=== PATIENT | female | born 1955 | race Caucasian/White ===

== ENCOUNTER 2017-05-21 05:07 | Inpatient (IN) | payer MEDICARE, OTHER ==
[~2017-05-21] VITALS: Ht 165.1 cm; Wt 102.0 kg
[~2017-05-21 05:07] MED LIST: AMLO-145 PO; GEMF600T60 PO; POTA10TA97 PO; VALS160T20 PO; [UNRECOGNIZED DRUG - OTHER] PO
[2017-05-21 06:37] LABS: BASOPHIL # 0.1 10^3/ul (0.0-0.1); BASOPHILS % 0.8 % (0.0-2.0); EOSINOPHILS # 0.2 10^3/ul (0.0-0.5); EOSINOPHILS % 3.2 % (0.0-7.0); HEMATOCRIT 39.6 % (37.0-47.0); HEMOGLOBIN 12.2 g/dl (12.0-16.0); LYMPHOCYTES # 3.2 10^3/ul (0.8-2.9); LYMPHOCYTES % 41.7 % (15.0-51.0); MEAN CORPUSCULAR HEMOGLOBIN 26.9 pg (29.0-33.0); MEAN CORPUSCULAR HGB CONC 30.8 g/dl (32.0-37.0); MEAN CORPUSCULAR VOLUME 87.4 fl (82.0-101.0); MEAN PLATELET VOLUME 10.5 fl (7.4-10.4); MONOCYTE # 0.9 10^3/ul (0.3-0.9); MONOCYTES % 11.2 % (0.0-11.0); PLATELET COUNT 287 10^3/UL (140-415); RED BLOOD COUNT 4.53 10^6/ul (4.20-5.40); RED CELL DISTRIBUTION WIDTH 14.1 % (11.5-14.5); WHITE BLOOD COUNT 7.6 10^3/ul (4.8-10.8)
[2017-05-21] MEDS ORDERED: ASPIRIN 325 MG TAB PO STA (06:49)
[2017-05-21 07:04] LABS: ANION GAP 12 (8-16); BLOOD UREA NITROGEN 18 mg/dl (7-20); CALCIUM 9.4 mg/dl (8.4-10.2); CARBON DIOXIDE 27 mmol/L (21-31); CHLORIDE 106 mmol/L (97-110); CREATININE 1.18 mg/dl (0.44-1.00); GLUCOSE 92 mg/dl (70-220); POTASSIUM 4.4 mmol/L (3.5-5.1); SODIUM 141 mmol/L (135-144)
--- NOTE | 2017-05-21 07:05 | ERA ---
ER Documentation Chief Complaint Date/Time DATE: 05/21/17 TIME: 06:54 Chief Complaint CP x5 hours ago. HPI 61-year-old female with a history of hypertension, hyperlipidemia, asthma, uterine prolapse and a pulmonary embolism in 2008 treated with Coumadin for 1 year ambulatory to the emergency department with her daughter complaining of acute onset of sharp, left sided chest pain which radiates to her back accompanied by mild shortness of breath and nausea but vomiting or diaphoresis. Pain is pleuritic and exacerbated by breathing. No relieving factors. Denies cough or wheezing. No leg pain or swelling. No skin rash. Several month history of mild, intermittent, generalized, nonradiating, crampy abdominal pain but not currently. No hematemesis, hematochezia or melanotic stools. No dysuria, polyuria, hematuria or flank pain. No URI symptoms or cough. No fevers or chills. Patient does have a long history of intermittent episodes of chest pain and had a negative nuclear medicine study in 2011. ROS All systems reviewed and are negative except as per history of present illness. Medications Home Meds Reported Medications Potassium Chloride (Klor-Con) 10 Meq Tablet.sa, 8 MEQ PO DAILY 12/25/11 [Hydrochlorotiazide] No Conflict Check, 25 MG PO DAILY 12/25/11 Amlodipine Besylate* (Amlodipine Besylate*) 5 Mg Tablet, 5 MG PO DAILY 12/25/11 Gemfibrozil* (Gemfibrozil*) 600 Mg Tablet, 600 MG PO DAILY 12/25/11 Valsartan* (Diovan*) 160 Mg Tablet, 160 MG PO DAILY 12/25/11 Allergies Allergies: Coded Allergies: No Known Allergy (Unverified , 05/21/17) NKA/NINOSKA/NUCLEAR MEDICINE (PER PT) PMhx/Soc Reviewed in chart. As per HPI. Medical and Surgical Hx: pt denies Medical Hx, pt denies Surgical Hx History of Surgery: Yes (uterine detachment surgery) Anesthesia Reaction: No Hx Neurological Disorder: No Hx Respiratory Disorders: Yes (asthma) Hx Cardiac Disorders: Yes (htn, ) Hx Psychiatric Problems: No Hx Miscellaneous Medical Probl: No Hx Alcohol Use: No Hx Substance Use: No Hx Tobacco Use: No Smoking Status: Never smoker FmHx Both parents of MIs in their 80s and had hypertension. Physical Exam Vitals Vital Signs Date Time Temp Pulse Resp B/P Pulse Ox O2 Delivery O2 Flow Rate FiO2 05/21/17 08:25 61 18 128/59 99 Nasal Cannula 2.0 05/21/17 06:11 Nasal Cannula 2 05/21/17 06:11 76 16 123/63 99 Nasal Cannula 2.0 05/21/17 05:14 97.8 66 20 142/70 96 Physical Exam GENERAL: Alert, well-appearing, Anxious in mild distress SKIN: Warm, dry, no rash, No petechiae. No ecchymoses or bruising. HEAD: Atraumatic NECK: Supple, no tenderness, full range of motion. No lymphadenopathy. No JVD. EYES: Pupils are equal, round and reactive to light, extraocular movements are intact, Conjunctiva, not injected, sclera anicteric. ENT: Mucous membranes are moist. Pharynx is clear without erythema or exudate. CARDIOVASCULAR: Regular rate and rhythm, S1, S2, No murmurs, rubs or gallops. No edema Pulses are 4+ in all extremities. RESPIRATORY: Breath sounds are equal bilaterally. No rales, rhonchi or wheezes. CHEST WALL: Mild reproducible tenderness. No ecchymosis or bruising GASTROINTESTINAL: Bowel sounds present, nondistended. Soft, nontender, no rebound or guarding. Obese. No masses or abnormal pulsations. BACK: No spinal tenderness or paraspinal muscle spasm. No costovertebral angle tenderness. MUSCULOSKELETAL: Normal ROM, no deformity. No calf swelling or tenderness, NEUROLOGIC: Alert and oriented. CN II-XII intact. No focal neurological deficit observed. Normal speech. LYMPHATICS: No gross cervical, axillary or inguinal lymphadenopathy. No Lymphedema. PSYCHIATRIC: Cooperative. Appropriate mood and affect. Appears anxious but depressed. Result Diagram: 05/21/1745 05/21/1745 Results 24 hrs Laboratory Tests Test 05/21/17 05:45 White Blood Count 7.610^3/ul Red Blood Count 4.5310^6/ul Hemoglobin 12.2g/dl Hematocrit 39.6% Mean Corpuscular Volume 87.4fl Mean Corpuscular Hemoglobin 26.9pg Mean Corpuscular Hemoglobin Concent 30.8g/dl Red Cell Distribution Width 14.1% Platelet Count 34663^3/UL Mean Platelet Volume 10.5fl Neutrophils % 43.0% Lymphocytes % 41.7% Monocytes % 11.2% Eosinophils % 3.2% Basophils % 0.8% Nucleated Red Blood Cells % 0.0/100WBC Neutrophils # (Manual) 3.310^3/ul Lymphocytes # 3.210^3/ul Monocytes # 0.910^3/ul Eosinophils # 0.210^3/ul Basophils # 0.110^3/ul Nucleated Red Blood Cells # 0.010^3/ul Prothrombin Time 12.9Sec Prothrombin Time Ratio 1.0 INR International Normalized Ratio 0.97 Activated Partial Thromboplast Time 32.2Sec Sodium Level 140mmol/L Potassium Level 4.1mmol/L Chloride Level 106mmol/L Carbon Dioxide Level 27mmol/L Anion Gap 11 Blood Urea Nitrogen 18mg/dl Creatinine 1.21mg/dl Glucose Level 95mg/dl Calcium Level 9.3mg/dl Total Bilirubin 0.2mg/dl Direct Bilirubin 0.00mg/dl Indirect Bilirubin 0.2mg/dl Aspartate Amino Transf (AST/SGOT) 21IU/L Alanine Aminotransferase (ALT/SGPT) 25IU/L Alkaline Phosphatase 96IU/L Troponin I < 0.012ng/ml Total Protein 7.0g/dl Albumin 3.7g/dl Globulin 3.30g/dl Albumin/Globulin Ratio 1.12 Current Medications Medications (Trade) Dose Ordered Sig/Caitlin Route PRN Reason Start Time Stop Time Status Last Admin Dose Admin Aspirin 325 mg 325 mg ONCE STAT PO 05/21/17 06:49 05/21/17 06:52 DC 05/21/17 06:57 Iohexol 100 ml @ STK-MED ONCE .ROUTE 05/21/17 07:42 05/21/17 07:43 DC 05/21/17 07:52 Sodium Chloride (NS) 100 ml @ ud STK-MED ONCE .ROUTE 05/21/17 07:42 05/21/17 07:43 DC 05/21/17 07:52 Enoxaparin Sodium (Lovenox) 100 mg ONCE ONCE SC 05/21/17 09:30 05/21/17 09:31 DC 05/21/17 09:56 Ondansetron HCl (Zofran Inj) 4 mg BRIDGE ORDER PRN IV NAUSEA AND/OR VOMITING 05/21/17 09:30 05/22/17 09:29 Acetaminophen (Tylenol Tab) 650 mg ER BRIDGE PRN PO MILD PAIN/FEVER 05/21/17 09:30 05/22/17 09:29 EKG: Time: 05:15. Sinus rhythm. Ventricular rate 61, normal TN and QRS intervals. No acute ST segment elevation or depression. No axis deviation or ectopy. EP Impression: Normal EKG IMAGING: PROCEDURE: XR Chest. CLINICAL INDICATION: Chest pain. TECHNIQUE: Single frontal view of the chest was obtained. COMPARISON: Chest x-ray 09/10/2013 12:49 p.m. FINDINGS: The soft tissues are normal. There are degenerative osteophytes in the thoracic spine. The heart is mildly enlarged but stable. The cardiomediastinal silhouette and hilar structures are normal. The pulmonary vasculature is normal. The left-sided aorta is mildly ectatic. There is a plate-like density in the periphery of the left mid lung field. The costophrenic angles are normal. IMPRESSION: 1. Plate-like atelectasis versus scarring in the periphery of the left mid lung field. 2. Mild cardiomegaly. 3. Spondylosis of the thoracic spine. 4. Obesity. RPTAT:AAJJ Physician Sanjeev Date Time Electronically viewed and signed by Physician Sanjeev on 05/21/2017 08:29 JM/ AMENDMENT: 05/21/2017 8:52:24 AM Gerard Solorzano M.D A call report was made to Luis Figueroa at 05/21/2017 8:52:20 AM PROCEDURE: CTA Chest. CLINICAL INDICATION: Chest pain TECHNIQUE: The study was performed utilizing a multidetector CT scanner. Direct spiral 1 mm axial sections were obtained from the thoracic inlet to the upper abdomen with the use of 100 cc of Omnipaque 350 nonionic intravenous contrast material and reformatted at 3 mm. Coronal and sagittal reformations were obtained. 3-D reconstructions were also obtained. The images were reviewed on a PACS workstation. One or more of the following dose reduction techniques were used: - Automated exposure control. - Adjustment of the mA and/or kV according to patient size. Use of iterative reconstruction technique. DLP 721.9 mGycm CTDIvol 49.3 and 19.7 mGy COMPARISON: No prior studies are available for comparison. FINDINGS: Filling defects are seen in the right lower lobe pulmonary arteries consistent with pulmonary emboli. There also filling defects in the basilar right middle lobe pulmonary arteries as well. No left-sided filling defects are seen. There is no filling defect in the main pulmonary arteries bilaterally. Aortic and coronary artery atherosclerotic plaque and calcification are present with no evidence of dissection. Heart is at the upper limits of normal in size. There is no lung consolidation, pleural effusion, or pneumothorax. There is mild bibasilar atelectasis present and trace subpleural scarring. There is no suspicious nodule or mass. The airways are patent. There are no enlarged mediastinal or axillary lymph nodes. Upper abdominal structures are within normal limits. Degenerative changes are seen in the lumbar spine with no evidence of acute osseous abnormality. IMPRESSION: Right-sided right middle lobe and right lower lobe pulmonary emboli are seen with small filling defects within the segmental and subsegmental basilar pulmonary arteries. Atherosclerotic disease without aortic dissection. The heart is borderline enlarged. Mild bibasilar atelectasis. RPTAT: AA .Gerard Solorzano MD, Date Time Electronically viewed and signed by .Gerard Solorzano MD, MD on 05/21/2017 08:52 .J/ PROCEDURE: US bilateral lower extremity veins. CLINICAL INDICATION: Bilateral leg pain and swelling. TECHNIQUE: Multiple longitudinal and transverse images of the bilateral lower extremity veins were obtained with angel scale and color Doppler imaging. The common femoral vein, femoral vein, and popliteal vein were evaluated. 2D grayscale measurements with compression sonography, color Doppler, and pulsed Doppler with augmentation. COMPARISON: No prior studies are available for comparison. FINDINGS: The bilateral common femoral, femoral and popliteal veins are normally compressible throughout. Color flow demonstrates normal filling of the vessels. Normal waveforms are visualized and there is normal response to augmentation. There is thrombus in the left peroneal vein which is a calf vein. IMPRESSION: 1. Thrombus in the left peroneal vein which is a calf vein. Follow-up left lower extremity venous Doppler in 5 days is advised to evaluate for cephalad propagation of thrombus. 2. Otherwise normal bilateral lower extremity venous Doppler. RPTAT: QQ .Gadiel Funk MD, MD Date Time Electronically viewed and signed by .Gadiel Funk MD, on 05/21/2017 09:10 .R/ Procedures/MDM DOCUMENTS REVIEWED: ED nurse, Prior ED, Prior records, Including nuclear medicine report from 2011 which revealed no ischemia. MEDICAL DECISION MAKIN-year-old female with a history of hypertension, hyperlipidemia, asthma, uterine prolapse and a pulmonary embolism in 2008 ambulatory to the emergency department with her daughter complaining of acute onset of sharp, left sided chest pain which radiates to her back accompanied by mild shortness of breath and nausea but vomiting or diaphoresis. No acute ischemic EKG changes, elevated troponin or other signs of acute coronary syndrome. Chest x-ray reveals atelectasis but no acute effusions or infiltrates. CT of the chest with IV contrast reveals right-sided pulmonary emboli. Lovenox 1mg/kg given. Hemodynamically stable. Venous Dopplers of lower extremity reveals a peroneal thrombus but is otherwise unremarkable. Patient be admitted to [facility] for anticoagulation, further evaluation and management including hypercoagulability evaluation. Counseled patient and family regarding diagnosis, diagnostic results and plan for admission. CRITICAL CARE TIME: Due to the high probability of sudden clinically significant Respiratory, hemodynamic and cardiovascular deterioration, this patient with Chest pain and pulmonary embolism required multiple, frequent reevaluations of vital signs and response to therapy. Additional critical care time was spent in Interpretation of relevant data including labs, EKG, imaging studies and arranging for continued care and admission with the admitting physician. TOTAL CRITICAL CARE TIME: 35 minutes not including other separately reportable procedures. CALLS/CONSULTS: Time 08:45, Dr. Akins, Recommends Lovenox and admission to [facility]. PATIENT CARE TRANSITIONED: Time: 09:30, Dr. Akins. Departure Diagnosis: Primary Impression: Chest pain Qualified Code: R07.9 - Chest pain, unspecified type Additional Impressions: Pulmonary embolism Qualified Code: I26.99 - Other acute pulmonary embolism without acute cor pulmonale Hypertension Qualified Code: I10 - Essential hypertension Condition: Serious LUIS FIGUEROA MD May 21, 2017 07:04
[2017-05-21 07:18] LABS: TROPONIN-I < 0.012 ng/ml (0.00-0.12)
[2017-05-21] MEDS ORDERED: IOHEXOL 100 ML ONE (07:42)
[2017-05-21] MEDS ORDERED: SOD CHLORIDE 0.9% 100 ML ONE (07:42)
[2017-05-21 07:53] LABS: INR 0.97; PROTIME 12.9 Sec (12.2-14.2)
[2017-05-21 07:54] LABS: PARTIAL THROMBOPLASTIN TIME 32.2 Sec (25.0-35.0)
[2017-05-21 07:57] LABS: ALBUMIN 3.7 g/dl (3.3-4.9); ALBUMIN/GLOBULIN RATIO 1.12; BILIRUBIN,INDIRECT 0.2 mg/dl (0-1.1); BILIRUBIN,TOTAL 0.2 mg/dl (0.2-1.3); CALCIUM 9.3 mg/dl (8.4-10.2); CREATININE 1.21 mg/dl (0.44-1.00); POTASSIUM 4.1 mmol/L (3.5-5.1)
--- NOTE | 2017-05-21 08:16 | RADRPT ---
AMENDMENT: 05/21/2017 8:52:24 AM Gerard Redd call report was made to Ean Wilson at 05/21/2017 8:52:20 AM PROCEDURE: CTA Chest. CLINICAL INDICATION: Chest pain TECHNIQUE: The study was performed utilizing a multidetector CT scanner. Direct spiral 1 mm axial sections were obtained from the thoracic inlet to the upper abdomen with the use of 100 cc of Omnipa que 350 nonionic intravenous contrast material and reformatted at 3 mm. Coronal and sagittal reforma tions were obtained. 3-D reconstructions were also obtained. The images were reviewed on a PACS wor kstation. One or more of the following dose reduction techniques were used: - Automated exposure control. - Adjustment of the mA and/or kV according to patient size. Use of iterative reconstruction technique. DLP 721.9 mGycm CTDIvol 49.3 and 19.7 mGy COMPARISON: No prior studies are available for comparison. FINDINGS: Filling defects are seen in the right lower lobe pulmonary arteries consistent with pulmonary emboli . There also filling defects in the basilar right middle lobe pulmonary arteries as well. No left- sided filling defects are seen. There is no filling defect in the main pulmonary arteries bilateral ly. Aortic and coronary artery atherosclerotic plaque and calcification are present with no evidence of dissection. Heart is at the upper limits of normal in size. There is no lung consolidation, pleural effusion, or pneumothorax. There is mild bibasilar atelecta sis present and trace subpleural scarring. There is no suspicious nodule or mass. The airways are patent. There are no enlarged mediastinal or axillary lymph nodes. Upper abdominal structures are within normal limits. Degenerative changes are seen in the lumbar sp ine with no evidence of acute osseous abnormality. IMPRESSION: Right-sided right middle lobe and right lower lobe pulmonary emboli are seen with small filling defe cts within the segmental and subsegmental basilar pulmonary arteries. Atherosclerotic disease without aortic dissection. The heart is borderline enlarged. Mild bibasilar atelectasis. RPTAT: AA .Gerard Solorzano MD, MD Date Time Electronically viewed and signed by .Gerard Solorzano MD, MD on 05/21/2017 08:52 .Reji
--- NOTE | 2017-05-21 08:29 | RADRPT ---
PROCEDURE: XR Chest. CLINICAL INDICATION: Chest pain. TECHNIQUE: Single frontal view of the chest was obtained. COMPARISON: Chest x-ray 09/10/2013 12:49 p.m. FINDINGS: The soft tissues are normal. There are degenerative osteophytes in the thoracic spine. The heart i s mildly enlarged but stable. The cardiomediastinal silhouette and hilar structures are normal. The pulmonary vasculature is normal. The left-sided aorta is mildly ectatic. There is a plate-like dens ity in the periphery of the left mid lung field. The costophrenic angles are normal. IMPRESSION: 1. Plate-like atelectasis versus scarring in the periphery of the left mid lung field. 2. Mild cardiomegaly. 3. Spondylosis of the thoracic spine. 4. Obesity. RPTAT:AAJJ Physician Sanjeev Date Time Electronically viewed and signed by Physician Sanjeev on 05/21/2017 08:29 /
--- NOTE | 2017-05-21 09:10 | RADRPT ---
PROCEDURE: US bilateral lower extremity veins. CLINICAL INDICATION: Bilateral leg pain and swelling. TECHNIQUE: Multiple longitudinal and transverse images of the bilateral lower extremity veins were obtained with angel scale and color Doppler imaging. The common femoral vein, femoral vein, and popl iteal vein were evaluated. 2D grayscale measurements with compression sonography, color Doppler, and pulsed Doppler with augmentation. COMPARISON: No prior studies are available for comparison. FINDINGS: The bilateral common femoral, femoral and popliteal veins are normally compressible throughout. Col or flow demonstrates normal filling of the vessels. Normal waveforms are visualized and there is no rmal response to augmentation. There is thrombus in the left peroneal vein which is a calf vein. IMPRESSION: 1. Thrombus in the left peroneal vein which is a calf vein. Follow-up left lower extremity venous D oppler in 5 days is advised to evaluate for cephalad propagation of thrombus. 2. Otherwise normal bilateral lower extremity venous Doppler. RPTAT: QQ .Gadiel Funk MD, MD Date Time Electronically viewed and signed by .Gadiel Funk MD, on 05/21/2017 09:10 .R/
[2017-05-21] MEDS ORDERED: ACETAMINOPHEN 325 MG TAB PO PRN (09:30)
[2017-05-21] MEDS ORDERED: ONDANSETRON 4 MG INJ IV PRN (09:30)
[2017-05-21] MEDS ORDERED: ENOXAPARIN 100 MG/ML SYG SC ONE (09:30)
[2017-05-21 12:06] LABS: CREATINE KINASE 46 IU/L (23-200)
[2017-05-21 12:19] LABS: CK-MB 0.52 ng/ml (0.0-2.4)
[2017-05-21 12:29] LABS: TROPONIN-I < 0.012 ng/ml (0.00-0.12)
[2017-05-21 12:40] VITALS: Ht 165.1 cm; Wt 102.0 kg
[2017-05-21 12:41] VITALS: BP 129/59; PULSE 81; RESP 18
--- NOTE | 2017-05-21 15:43 | HP ---
Date/Time of Note Date/Time of Note DATE: 05/21/17 TIME: 14:49 Assessment/Plan Lines/Catheters IV Catheter Type (from Nrsg): Saline Lock Assessment/Plan Assessment/Plan - Chest pain- NONE AT PRESENT - Cardiology notified - Pulmonary embolism - Pulmonary consult- Dr Bean notified - Thrombus in the left peroneal vein which is a calf vein. FU left lower extremity venous Doppler in 5 days is advised to evaluate for cephalad propagation of thrombus. - Lovenox 100 mg sc BID - Hypertension - Asthma HPI/ROS Admit Date/Time Admit Date/Time May 21, 2017 at 09:26 Hx of Present Illness HPI 61-year-old female with a history of hypertension, hyperlipidemia, asthma, uterine prolapse and a pulmonary embolism in 2008 treated with Coumadin for 1 year ambulatory to the emergency department with her daughter complaining of acute onset of sharp, left sided chest pain which radiates to her back accompanied by mild shortness of breath and nausea but vomiting or diaphoresis. Pain is pleuritic and exacerbated by breathing. No relieving factors. Denies cough or wheezing. No leg pain or swelling. No skin rash. Several month history of mild, intermittent, generalized, nonradiating, crampy abdominal pain but not currently. No hematemesis, hematochezia or melanotic stools. No dysuria, polyuria, hematuria or flank pain. No URI symptoms or cough. No fevers or chills. Patient does have a long history of intermittent episodes of chest pain and had a negative nuclear medicine study in 2012. ROS All systems reviewed and are negative except as per history of present illness. ROS CP x5 hours ago. HPI 61-year-old female with a history of hypertension, hyperlipidemia, asthma, uterine prolapse and a pulmonary embolism in 2008 treated with Coumadin for 1 year ambulatory to the emergency department with her daughter complaining of acute onset of sharp, left sided chest pain which radiates to her back accompanied by mild shortness of breath and nausea but vomiting or diaphoresis. Pain is pleuritic and exacerbated by breathing. No relieving factors. Denies cough or wheezing. No leg pain or swelling. No skin rash. Several month history of mild, intermittent, generalized, nonradiating, crampy abdominal pain but not currently. No hematemesis, hematochezia or melanotic stools. No dysuria, polyuria, hematuria or flank pain. No URI symptoms or cough. No fevers or chills. Patient does have a long history of intermittent episodes of chest pain and had a negative nuclear medicine study in 2012. ROS All systems reviewed and are negative except as per history of present illness. Respiratory: no complaints Cardiovascular: no complaints Gastrointestinal: no complaints Genitourinary: no complaints Musculoskeletal: no complaints PMH/Family/Social Past Medical History Allergies Allergies: Coded Allergies: No Known Allergy (Unverified , 05/21/17) NKA/NINSOKA/NUCLEAR MEDICINE (PER PT) PMhx/Soc Reviewed in chart. As per HPI. Medical and Surgical Hx: pt denies Medical Hx, pt denies Surgical Hx History of Surgery: Yes (uterine detachment surgery) Anesthesia Reaction: No Hx Neurological Disorder: No Hx Respiratory Disorders: Yes (asthma) Hx Cardiac Disorders: Yes (htn, ) Hx Psychiatric Problems: No Hx Miscellaneous Medical Probl: No Hx Alcohol Use: No Hx Substance Use: No Hx Tobacco Use: No Smoking Status: Never smoker FmHx Both parents of MIs in their 80s and had hypertension. Social History Alcohol Use: none Smoking Status: Never smoker Drug Use: none Exam/Review of Systems Vital Signs Vitals Vital Signs Date Time Temp Pulse Resp B/P Pulse Ox O2 Delivery O2 Flow Rate FiO2 05/21/17 12:41 98.1 81 18 129/59 100 Room Air 05/21/17 11:30 2.0 Exam Constitutional: alert, well developed Neck: non-tender Respiratory: clear to auscultation, normal air movement Cardiovascular: nl pulses, regular rate and rhythm Gastrointestinal: non-tender, soft Musculoskeletal: nl extremities to inspection Extremities: normal pulses Neurological: nl mental status Labs Result Diagram: 05/21/17 0545 05/21/17 0545 Procedures Procedures EKG: Sinus rhythm. Ventricular rate 61, normal NM and QRS intervals. No acute ST segment elevation or depression. No axis deviation or ectopy. EP Impression: Normal EKG PROCEDURE: XR Chest. CLINICAL INDICATION: Chest pain. TECHNIQUE: Single frontal view of the chest was obtained. COMPARISON: Chest x-ray 09/10/2013 12:49 p.m. FINDINGS: The soft tissues are normal. There are degenerative osteophytes in the thoracic spine. The heart is mildly enlarged but stable. The cardiomediastinal silhouette and hilar structures are normal. The pulmonary vasculature is normal. The left-sided aorta is mildly ectatic. There is a plate-like density in the periphery of the left mid lung field. The costophrenic angles are normal. IMPRESSION: 1. Plate-like atelectasis versus scarring in the periphery of the left mid lung field. 2. Mild cardiomegaly. 3. Spondylosis of the thoracic spine. 4. Obesity. PROCEDURE: CTA Chest. CLINICAL INDICATION: Chest pain TECHNIQUE: The study was performed utilizing a multidetector CT scanner. Direct spiral 1 mm axial sections were obtained from the thoracic inlet to the upper abdomen with the use of 100 cc of Omnipaque 350 nonionic intravenous contrast material and reformatted at 3 mm. Coronal and sagittal reformations were obtained. 3-D reconstructions were also obtained. The images were reviewed on a PACS workstation. One or more of the following dose reduction techniques were used: - Automated exposure control. - Adjustment of the mA and/or kV according to patient size. Use of iterative reconstruction technique. COMPARISON: No prior studies are available for comparison. FINDINGS: Filling defects are seen in the right lower lobe pulmonary arteries consistent with pulmonary emboli. There also filling defects in the basilar right middle lobe pulmonary arteries as well. No left-sided filling defects are seen. There is no filling defect in the main pulmonary arteries bilaterally. Aortic and coronary artery atherosclerotic plaque and calcification are present with no evidence of dissection. Heart is at the upper limits of normal in size. There is no lung consolidation, pleural effusion, or pneumothorax. There is mild bibasilar atelectasis present and trace subpleural scarring. There is no suspicious nodule or mass. The airways are patent. There are no enlarged mediastinal or axillary lymph nodes. Upper abdominal structures are within normal limits. Degenerative changes are seen in the lumbar spine with no evidence of acute osseous abnormality. IMPRESSION: Right-sided right middle lobe and right lower lobe pulmonary emboli are seen with small filling defects within the segmental and subsegmental basilar pulmonary arteries. Atherosclerotic disease without aortic dissection. The heart is borderline enlarged. Mild bibasilar atelectasis. PROCEDURE: US bilateral lower extremity veins. CLINICAL INDICATION: Bilateral leg pain and swelling. TECHNIQUE: Multiple longitudinal and transverse images of the bilateral lower extremity veins were obtained with angel scale and color Doppler imaging. The common femoral vein, femoral vein, and popliteal vein were evaluated. 2D grayscale measurements with compression sonography, color Doppler, and pulsed Doppler with augmentation. COMPARISON: No prior studies are available for comparison. FINDINGS: The bilateral common femoral, femoral and popliteal veins are normally compressible throughout. Color flow demonstrates normal filling of the vessels. Normal waveforms are visualized and there is normal response to augmentation. There is thrombus in the left peroneal vein which is a calf vein. IMPRESSION: 1. Thrombus in the left peroneal vein which is a calf vein. Follow-up left lower extremity venous Doppler in 5 days is advised to evaluate for cephalad propagation of thrombus. 2. Otherwise normal bilateral lower extremity venous Doppler. JOSHUA HARRIS May 21, 2017 15:03
[2017-05-21 17:56] LABS: CREATINE KINASE 44 IU/L (23-200)
[2017-05-21 18:06] LABS: CK-MB 0.54 ng/ml (0.0-2.4)
[2017-05-21 18:10] LABS: TROPONIN-I < 0.012 ng/ml (0.00-0.12)
[2017-05-21 18:26] VITALS: BP 117/58; RESP 19
[2017-05-21] MEDS: ACETAMINOPHEN 325 MG TAB PO PRN (18:54)
[2017-05-21 19:35] VITALS: BP 124/67; RESP 20
[2017-05-21] MEDS ORDERED: ENOXAPARIN 100 MG/ML SYG SC SCH (21:00)
[2017-05-21] MEDS: APIXABAN 5 MG TABLET PO SCH (21:19)
[2017-05-22] MEDS: ACETAMINOPHEN 325 MG TAB PO PRN ×2 (02:00→20:10)
[2017-05-22 02:15] VITALS: BP 126/58; RESP 20
[2017-05-22 05:26] LABS: BASOPHIL # 0.1 10^3/ul (0.0-0.1); BASOPHILS % 0.8 % (0.0-2.0); EOSINOPHILS # 0.2 10^3/ul (0.0-0.5); HEMATOCRIT 35.3 % (37.0-47.0); LYMPHOCYTES # 2.5 10^3/ul (0.8-2.9); LYMPHOCYTES % 39.4 % (15.0-51.0); MEAN CORPUSCULAR HEMOGLOBIN 27.2 pg (29.0-33.0); MEAN CORPUSCULAR HGB CONC 31.2 g/dl (32.0-37.0); MEAN CORPUSCULAR VOLUME 87.4 fl (82.0-101.0); MEAN PLATELET VOLUME 10.4 fl (7.4-10.4); MONOCYTE # 0.6 10^3/ul (0.3-0.9); MONOCYTES % 9.8 % (0.0-11.0); NEUTROPHILS % 46.7 % (39.0-77.0); PLATELET COUNT 257 10^3/UL (140-415); RED BLOOD COUNT 4.04 10^6/ul (4.20-5.40); RED CELL DISTRIBUTION WIDTH 14.1 % (11.5-14.5); WHITE BLOOD COUNT 6.3 10^3/ul (4.8-10.8)
[2017-05-22 06:05] LABS: CALCIUM 8.6 mg/dl (8.4-10.2); CREATININE 1.07 mg/dl (0.44-1.00); POTASSIUM 3.9 mmol/L (3.5-5.1)
[2017-05-22 08:11] VITALS: BP 134/65; RESP 18
[2017-05-22] MEDS: VALSARTAN 160 MG TAB PO SCH (08:35)
[2017-05-22] MEDS: AMLODIPINE 5 MG TAB PO SCH (08:35)
[2017-05-22] MEDS: GEMFIBROZIL 600 MG TAB PO SCH (08:36)
[2017-05-22] MEDS: HYDROCHLOROTHIAZIDE 25 MG TAB PO SCH (08:36)
[2017-05-22] MEDS: APIXABAN 5 MG TABLET PO SCH ×2 (08:36→20:10)
[2017-05-22] MEDS ORDERED: POTASSIUM CHLORIDE (SR) 10 MEQ TAB PO SCH (09:00)
[2017-05-22 14:00] VITALS: BP 122/66; RESP 20
--- NOTE | 2017-05-22 15:49 | CONS ---
Date/Time of Note Date/Time of Note DATE: 05/22/17 TIME: 15:45 Assessment/Plan Assessment/Plan Problems: (1) Pharyngitis Status: Acute (2) Chest pain Status: Acute Qualifiers: Qualified Code: R07.9 - Chest pain, unspecified type (3) Pulmonary embolism Status: Acute Qualifiers: Qualified Code: I26.99 - Other acute pulmonary embolism without acute cor pulmonale (4) Hypertension Status: Acute Qualifiers: Qualified Code: I10 - Essential hypertension Additional Assessment/Plan Patient is in PE / DVT acute incidence. patient needs to be on 10mg Eliques BID for PE for 7 days and then 5mg BID for 6m. as first incidence. 2D echo. pt is stable can be d/c home tomorrow out pt f.u. Consultation Date/Type/Reason Admit Date/Time May 21, 2017 at 09:26 Date of Consultation: May 22, 2017 Type of Consultation: Interventional Cardiology Reason for Consultation PE Hx of Present Illness Patient is 61 year old F with no signficant PMH came in with bilateral leg pain more in right with Actue DVT and PE in bilateral lobe. No CP, NO SOB at this time. tele no arrhythmia. Respiratory: no complaints Cardiovascular: no complaints Gastrointestinal: no complaints Genitourinary: no complaints Musculoskeletal: no complaints Past Medical History Medical History: no pertinent history Social History Alcohol Use: none Smoking Status: Never smoker Drug Use: none Exam/Review of Systems Vital Signs Vitals Vital Signs Date Time Temp Pulse Resp B/P Pulse Ox O2 Delivery O2 Flow Rate FiO2 05/22/17 08:11 97.1 60 18 134/65 94 05/21/17 12:41 Room Air 05/21/17 11:30 2.0 Intake and Output 05/21/17 05/21/17 05/22/17 15:00 23:00 07:00 Intake Total 900 ml Output Total 850 ml Balance 50 ml Exam Constitutional: alert, oriented Psych: no complaints Head: normocephalic Eyes: nl conjunctiva ENMT: nl external ears & nose Neck: supple Respiratory: clear to auscultation Cardiovascular: regular rate and rhythm Gastrointestinal: soft Genitourinary - Female: nl adnexae Results Result Diagram: 05/22/17 0433 05/22/17 0433 Results 24 hrs Laboratory Tests Test 05/21/17 17:27 05/22/17 04:33 Creatine Kinase 44 Creatine Kinase Index 1.2 Creatinine Kinase MB (Mass) 0.54 Troponin I < 0.012 White Blood Count 6.3 Red Blood Count 4.04 L Hemoglobin 11.0 L Hematocrit 35.3 L Mean Corpuscular Volume 87.4 Mean Corpuscular Hemoglobin 27.2 L Mean Corpuscular Hemoglobin Concent 31.2 L Red Cell Distribution Width 14.1 Platelet Count 257 Mean Platelet Volume 10.4 Neutrophils % 46.7 Lymphocytes % 39.4 Monocytes % 9.8 Eosinophils % 3.0 Basophils % 0.8 Nucleated Red Blood Cells % 0.0 Neutrophils # (Manual) 2.9 Lymphocytes # 2.5 Monocytes # 0.6 Eosinophils # 0.2 Basophils # 0.1 Nucleated Red Blood Cells # 0.0 Sodium Level 140 Potassium Level 3.9 Chloride Level 108 Carbon Dioxide Level 27 Anion Gap 9 Blood Urea Nitrogen 19 Creatinine 1.07 H Glucose Level 97 Calcium Level 8.6 B-Type Natriuretic Peptide 218 H Medications Medications Current Medications Amlodipine Besylate (Norvasc) 5 mg DAILY PO Last administered on 05/22/17 08: 35; Admin Dose 5 MG; Start 05/22/17 at 09:00 Gemfibrozil (Lopid) 600 mg DAILY PO Last administered on 05/22/17 08:36; Admin Dose 600 MG; Start 05/22/17 at 09:00 Potassium Chloride (Klor-Con 10) 8 meq DAILY PO Last administered on 05/22/17 08:35; Admin Dose 8 MEQ; Start 05/22/17 at 09:00 Valsartan (Diovan) 160 mg DAILY PO Last administered on 05/22/17 08:35; Admin Dose 160 MG; Start 05/22/17 at 09:00 Hydrochlorothiazide (Hydrochlorothiazide) 25 mg DAILY PO Last administered on 08:36; Admin Dose 25 MG; Start 05/22/17 at 09:00 Apixaban (Eliquis) 10 mg BID PO Last administered on 05/22/17 08:36; Admin Dose 10 MG; Start 05/21/17 at 21:00; Stop 05/28/17 at 20:59 Apixaban (Eliquis) 5 mg BID PO ; Start 05/28/17 at 21:00 Acetaminophen (Tylenol Tab) 650 mg Q6H PRN PO PAIN AND OR ELEVATED TEMP Last administered on 05/22/17t 02:00; Admin Dose 650 MG; Start 05/21/17 at 19:00 MIGUEL ANGEL JOE MD May 22, 2017 15:49
--- NOTE | 2017-05-22 16:14 | PN ---
Date/Time of Note Date/Time of Note DATE: 05/22/17 TIME: 15:46 Assessment/Plan VTE Prophylaxis VTE Prophylaxis Intervention: other Lines/Catheters IV Catheter Type (from Nrs): Saline Lock Urinary Cath still in place: No Assessment/Plan Assessment/Plan - Chest pain- NONE AT PRESENT - Cardiology notified - Pulmonary embolism - Pulmonary consult- Dr Bean notified - Thrombus in the left peroneal vein which is a calf vein. FU left lower extremity venous Doppler in 5 days is advised to evaluate for cephalad propagation of thrombus. - Lovenox 100 mg sc BID - Hypertension - Asthma Discharge patient AM. Mat Calixto/ Dr Felix- cardiologis Subjective 24 Hr Interval Summary Free Text/Dictation Denies any chest pain, shortness of breath, mat Felix- will dc patient in am. dw staff Respiratory: no complaints Cardiovascular: no complaints Gastrointestinal: no complaints Genitourinary: no complaints Musculoskeletal: no complaints Skin: no complaints Neurologic: no complaints Exam/Review of Systems Vital Signs Vitals Vital Signs Date Time Temp Pulse Resp B/P Pulse Ox O2 Delivery O2 Flow Rate FiO2 05/22/17 08:11 97.1 60 18 134/65 94 05/21/17 12:41 Room Air 05/21/17 11:30 2.0 Intake and Output 05/21/17 05/21/17 05/22/17 15:00 23:00 07:00 Intake Total 900 ml Output Total 850 ml Balance 50 ml Exam Constitutional: alert, oriented, well developed Respiratory: clear to auscultation, normal air movement Cardiovascular: nl pulses, regular rate and rhythm Gastrointestinal: non-tender, soft Musculoskeletal: nl extremities to inspection Extremities: normal pulses Neurological: nl mental status, nl speech Results Result Diagram: 05/22/17 0433 05/22/17 0433 Results 24 hrs Laboratory Tests Test 05/21/17 17:27 05/22/17 04:33 Creatine Kinase 44 Creatine Kinase Index 1.2 Creatinine Kinase MB (Mass) 0.54 Troponin I < 0.012 White Blood Count 6.3 Red Blood Count 4.04 L Hemoglobin 11.0 L Hematocrit 35.3 L Mean Corpuscular Volume 87.4 Mean Corpuscular Hemoglobin 27.2 L Mean Corpuscular Hemoglobin Concent 31.2 L Red Cell Distribution Width 14.1 Platelet Count 257 Mean Platelet Volume 10.4 Neutrophils % 46.7 Lymphocytes % 39.4 Monocytes % 9.8 Eosinophils % 3.0 Basophils % 0.8 Nucleated Red Blood Cells % 0.0 Neutrophils # (Manual) 2.9 Lymphocytes # 2.5 Monocytes # 0.6 Eosinophils # 0.2 Basophils # 0.1 Nucleated Red Blood Cells # 0.0 Sodium Level 140 Potassium Level 3.9 Chloride Level 108 Carbon Dioxide Level 27 Anion Gap 9 Blood Urea Nitrogen 19 Creatinine 1.07 H Glucose Level 97 Calcium Level 8.6 B-Type Natriuretic Peptide 218 H Medications Medications Current Medications Amlodipine Besylate (Norvasc) 5 mg DAILY PO Last administered on 05/22/17 08: 35; Admin Dose 5 MG; Start 05/22/17 at 09:00 Gemfibrozil (Lopid) 600 mg DAILY PO Last administered on 05/22/17 08:36; Admin Dose 600 MG; Start 05/22/17 at 09:00 Potassium Chloride (Klor-Con 10) 8 meq DAILY PO Last administered on 05/22/17 08:35; Admin Dose 8 MEQ; Start 05/22/17 at 09:00 Valsartan (Diovan) 160 mg DAILY PO Last administered on 05/22/17 08:35; Admin Dose 160 MG; Start 05/22/17 at 09:00 Hydrochlorothiazide (Hydrochlorothiazide) 25 mg DAILY PO Last administered on 08:36; Admin Dose 25 MG; Start 05/22/17 at 09:00 Apixaban (Eliquis) 10 mg BID PO Last administered on 05/22/17 08:36; Admin Dose 10 MG; Start 05/21/17 at 21:00; Stop 05/28/17 at 20:59 Apixaban (Eliquis) 5 mg BID PO ; Start 05/28/17 at 21:00 Acetaminophen (Tylenol Tab) 650 mg Q6H PRN PO PAIN AND OR ELEVATED TEMP Last administered on 05/22/17 02:00; Admin Dose 650 MG; Start 05/21/17 at 19:00 JOSHUA HARRIS May 22, 2017 15:57
--- NOTE | 2017-05-22 17:25 | CONS ---
DATE OF ADMISSION: 05/21/2017 DATE OF CONSULTATION: 05/22/2017 REASON FOR CONSULTATION: Abnormal chest CT. HISTORY OF PRESENT ILLNESS: This is a 61-year-old lady with a history of hypertension, hyperlipidemia, prior history of pulmonary embolus in 2008 at that time treated with Coumadin, presents with increasing left-sided chest pain, pleuritic in nature. She had a CT angiogram performed on admission, was found to have a right middle lobe, right lower lobe pulmonary emboli in the subsegmental pulmonary arteries. In addition, she was found a left peroneal vein thrombosis. The patient denies any recent travel history. No trauma. No sick contacts. No hemoptysis or hematemesis. No family history of recurrent thromboembolic disease. PAST MEDICAL HISTORY: As above. MEDICATION: Per chart. ALLERGIES: NONE KNOWN. SOCIAL HISTORY: Nonsmoker. No alcohol. No history of drug use. FAMILY HISTORY: Noncontributory. REVIEW OF SYSTEMS: A 12-point review of systems negative other than that mentioned above. PHYSICAL EXAMINATION: GENERAL APPEARANCE: Well-nourished, well-developed lady, appears comfortable at rest. No acute distress. VITAL SIGNS: Currently afebrile. Pulse 60, blood pressure 134/65, O2 sat 96 percent on room air. NECK: Supple. No JVD or lymphadenopathy. CARDIAC: S1, S2. No added sounds or murmurs. CHEST: Diminished air entry bilaterally. ABDOMEN: Soft, nontender. No guarding or rebound. EXTREMITIES: No cyanosis, clubbing or edema. NEUROLOGICALLY: Grossly intact. LABORATORY: White count 6.3, hemoglobin 11, platelets of 257,000. BUN 19, creatinine 1.07. BNP 218. EKG shows no acute ischemic changes. INR 0.97. Chest CT and Doppler ultrasound findings as above. IMPRESSION: Acute pulmonary embolus in a patient with a prior history of pulmonary embolus and no evidence of hemodynamic instability, no precipitating factors per chart. RECOMMENDATIONS: 1. The patient will require anticoagulation. Consider Lovenox and then Eliquis. 2. Consider hypercoagulable workup. 3. Encourage out of bed. 4. Obtain old history. Dictated By: Kostas Bean MD /carmelita/manpreet /Document#: [id number]
[2017-05-22 19:41] VITALS: BP 112/57; RESP 16
[2017-05-22] MEDS: RANITIDINE 150 MG TAB PO SCH (20:11)
[2017-05-23 01:38] VITALS: BP 99/55; RESP 18
[2017-05-23 05:47] LABS: BASOPHIL # 0.1 10^3/ul (0.0-0.1); BASOPHILS % 0.7 % (0.0-2.0); EOSINOPHILS # 0.3 10^3/ul (0.0-0.5); EOSINOPHILS % 4.2 % (0.0-7.0); HEMATOCRIT 36.7 % (37.0-47.0); HEMOGLOBIN 11.3 g/dl (12.0-16.0); LYMPHOCYTES # 2.6 10^3/ul (0.8-2.9); LYMPHOCYTES % 35.9 % (15.0-51.0); MEAN CORPUSCULAR HEMOGLOBIN 26.9 pg (29.0-33.0); MEAN CORPUSCULAR HGB CONC 30.8 g/dl (32.0-37.0); MEAN CORPUSCULAR VOLUME 87.4 fl (82.0-101.0); MEAN PLATELET VOLUME 10.6 fl (7.4-10.4); MONOCYTE # 0.7 10^3/ul (0.3-0.9); MONOCYTES % 9.7 % (0.0-11.0); NEUTROPHILS % 49.4 % (39.0-77.0); PLATELET COUNT 283 10^3/UL (140-415); RED CELL DISTRIBUTION WIDTH 14.2 % (11.5-14.5); WHITE BLOOD COUNT 7.2 10^3/ul (4.8-10.8)
[2017-05-23 06:05] LABS: CREATININE 0.98 mg/dl (0.44-1.00)
[2017-05-23 07:42] VITALS: BP 118/59; RESP 18
[2017-05-23] MEDS: RANITIDINE 150 MG TAB PO SCH ×2 (09:50→20:14)
[2017-05-23] MEDS: VALSARTAN 160 MG TAB PO SCH (09:50)
[2017-05-23] MEDS: GEMFIBROZIL 600 MG TAB PO SCH (09:51)
[2017-05-23] MEDS: HYDROCHLOROTHIAZIDE 25 MG TAB PO SCH (09:51)
[2017-05-23] MEDS: AMLODIPINE 5 MG TAB PO SCH (09:52)
[2017-05-23] MEDS: APIXABAN 5 MG TABLET PO SCH ×2 (09:52→20:14)
--- NOTE | 2017-05-23 10:40 | CONS ---
Date/Time of Note Date/Time of Note DATE: 05/23/17 TIME: 10:38 Assessment/Plan Assessment/Plan Additional Assessment/Plan Assessment and recommendations; 1. Patient admitted with right middle and lower lobe pulmonary embolism with peroneal vein thrombosis. Started on Eliquis. 2. Prior history of DVT and PE. Continue current treatment. Consider discharge. Patient will need to have lifelong anticoagulation. Consultation Date/Type/Reason Admit Date/Time May 21, 2017 at 09:26 Initial Consult Date 05/22/17 Type of Consultation: Pulmonary 24 HR Interval Summary Free Text/Dictation Patient's condition is stable. Denies any shortness of breath, complains of very minimal left lateral chest pain increased by deep breathing. Denies any hemoptysis any coughing. General exam; middle-aged woman, awake alert currently in no distress. Exam/Review of Systems Vital Signs Vitals Vital Signs Date Time Temp Pulse Resp B/P Pulse Ox O2 Delivery O2 Flow Rate FiO2 05/23/17 07:42 98.0 60 18 118/59 93 05/21/17 12:41 Room Air 05/21/17 11:30 2.0 Intake and Output 05/22/17 05/22/17 05/23/17 15:00 23:00 07:00 Intake Total 1160 ml 1050 ml Output Total 950 ml Balance 1160 ml 100 ml Exam HEENT exam; supple neck, no JVD. No lymphadenopathy. Midline trachea. No thyromegaly. Pharynx is clear. Patient has fair dentition. Pupils are small bilaterally. Chest exam; clear to auscultation. S1-S2 audible, no murmurs. Regular rhythm. There is mild tenderness involving the left lower posterolateral chest wall. Abdomen exam; soft, nontender. No organomegaly. Bowel sounds audible. Extremity exam; no peripheral edema. MANAGER CONSUMER exam; no focal deficit. Results Result Diagram: 05/23/17 0425 05/23/17 0425 Results 24 hrs Laboratory Tests Test 05/23/17 04:25 White Blood Count 7.2 Red Blood Count 4.20 Hemoglobin 11.3 L Hematocrit 36.7 L Mean Corpuscular Volume 87.4 Mean Corpuscular Hemoglobin 26.9 L Mean Corpuscular Hemoglobin Concent 30.8 L Red Cell Distribution Width 14.2 Platelet Count 283 Mean Platelet Volume 10.6 H Neutrophils % 49.4 Lymphocytes % 35.9 Monocytes % 9.7 Eosinophils % 4.2 Basophils % 0.7 Nucleated Red Blood Cells % 0.0 Neutrophils # (Manual) 3.6 Lymphocytes # 2.6 Monocytes # 0.7 Eosinophils # 0.3 Basophils # 0.1 Nucleated Red Blood Cells # 0.0 Sodium Level 140 Potassium Level 4.0 Chloride Level 108 Carbon Dioxide Level 26 Anion Gap 10 Blood Urea Nitrogen 19 Creatinine 0.98 Glucose Level 98 Calcium Level 9.0 Medications Medications Current Medications Amlodipine Besylate (Norvasc) 5 mg DAILY PO Last administered on 05/23/17 09: 52; Admin Dose 5 MG; Start 05/22/17 at 09:00 Gemfibrozil (Lopid) 600 mg DAILY PO Last administered on 05/23/17 09:51; Admin Dose 600 MG; Start 05/22/17 at 09:00 Valsartan (Diovan) 160 mg DAILY PO Last administered on 05/23/17 09:50; Admin Dose 160 MG; Start 05/22/17 at 09:00 Hydrochlorothiazide (Hydrochlorothiazide) 25 mg DAILY PO Last administered on 09:51; Admin Dose 25 MG; Start 05/22/17 at 09:00 Apixaban (Eliquis) 10 mg BID PO Last administered on 05/23/17 09:52; Admin Dose 10 MG; Start 05/21/17 at 21:00; Stop 05/28/17 at 20:59 Apixaban (Eliquis) 5 mg BID PO ; Start 05/28/17 at 21:00 Acetaminophen (Tylenol Tab) 650 mg Q6H PRN PO PAIN AND OR ELEVATED TEMP Last administered on 05/22/17 20:10; Admin Dose 650 MG; Start 05/21/17 at 19:00 Ranitidine HCl (Zantac) 150 mg BID PO Last administered on 05/23/17 09:50; Admin Dose 150 MG; Start 05/22/17 at 21:00 Potassium Chloride (Micro-K) 8 meq DAILY PO ; Start 05/23/17 at 11:00 TIFFANY ZEPEDA May 23, 2017 10:40
[2017-05-23 14:30] VITALS: BP 122/66; RESP 18
[2017-05-23] MEDS: POTASSIUM CHLORIDE (SR) 8 MEQ CAP PO SCH (14:38)
--- NOTE | 2017-05-23 19:11 | CONS ---
Date/Time of Note Date/Time of Note DATE: 05/23/17 TIME: 19:11 Consult Date/Type/Reason Admit Date/Time May 21, 2017 at 09:26 Initial Consult Date 05/22/17 Type of Consultation: Cardiology Objective Vital Signs Date Time Temp Pulse Resp B/P Pulse Ox O2 Delivery O2 Flow Rate FiO2 05/23/17 14:30 97.9 62 18 122/66 96 05/21/17 12:41 Room Air 05/21/17 11:30 2.0 Intake and Output 05/22/17 05/22/17 05/23/17 15:00 23:00 07:00 Intake Total 1160 ml 1050 ml Output Total 950 ml Balance 1160 ml 100 ml Results/Medications Result Diagram: 05/23/17 0425 05/23/17 0425 Results 24 hrs Laboratory Tests Test 05/23/17 04:25 White Blood Count 7.2 Red Blood Count 4.20 Hemoglobin 11.3 L Hematocrit 36.7 L Mean Corpuscular Volume 87.4 Mean Corpuscular Hemoglobin 26.9 L Mean Corpuscular Hemoglobin Concent 30.8 L Red Cell Distribution Width 14.2 Platelet Count 283 Mean Platelet Volume 10.6 H Neutrophils % 49.4 Lymphocytes % 35.9 Monocytes % 9.7 Eosinophils % 4.2 Basophils % 0.7 Nucleated Red Blood Cells % 0.0 Neutrophils # (Manual) 3.6 Lymphocytes # 2.6 Monocytes # 0.7 Eosinophils # 0.3 Basophils # 0.1 Nucleated Red Blood Cells # 0.0 Sodium Level 140 Potassium Level 4.0 Chloride Level 108 Carbon Dioxide Level 26 Anion Gap 10 Blood Urea Nitrogen 19 Creatinine 0.98 Glucose Level 98 Calcium Level 9.0 Medications Current Medications Amlodipine Besylate (Norvasc) 5 mg DAILY PO Last administered on 05/23/17 09: 52; Admin Dose 5 MG; Start 05/22/17 at 09:00 Gemfibrozil (Lopid) 600 mg DAILY PO Last administered on 05/23/17 09:51; Admin Dose 600 MG; Start 05/22/17 at 09:00 Valsartan (Diovan) 160 mg DAILY PO Last administered on 05/23/17 09:50; Admin Dose 160 MG; Start 05/22/17 at 09:00 Hydrochlorothiazide (Hydrochlorothiazide) 25 mg DAILY PO Last administered on 09:51; Admin Dose 25 MG; Start 05/22/17 at 09:00 Apixaban (Eliquis) 10 mg BID PO Last administered on 05/23/17 09:52; Admin Dose 10 MG; Start 05/21/17 at 21:00; Stop 05/28/17 at 20:59 Apixaban (Eliquis) 5 mg BID PO ; Start 05/28/17 at 21:00 Acetaminophen (Tylenol Tab) 650 mg Q6H PRN PO PAIN AND OR ELEVATED TEMP Last administered on 05/22/17 20:10; Admin Dose 650 MG; Start 05/21/17 at 19:00 Ranitidine HCl (Zantac) 150 mg BID PO Last administered on 05/23/17 09:50; Admin Dose 150 MG; Start 05/22/17 at 21:00 Potassium Chloride (Micro-K) 8 meq DAILY PO Last administered on 05/23/17 14: 38; Admin Dose 8 MEQ; Start 05/23/17 at 11:00 Assessment/Plan Chief Complaint/Hosp Course Patient is 61 year old F with no signficant PMH came in with bilateral leg pain more in right with Actue DVT and PE in bilateral lobe. No CP, NO SOB at this time. tele no arrhythmia. Problems: Additional Assessment/Plan Pt has prior history just told us will need lifelong AC. d/c her home. out pt f./u MIGUEL ANGEL JOE MD May 23, 2017 19:11
--- NOTE | 2017-05-23 19:36 | RADRPT ---
Echocardiogram Report Patient Name: RAJIV TERRELL Gender: Female Date: 1955 Study Date: 22-May-2017 Private [employer] Service Adviser: [facility] Location: [id number] Ref. Physician: JOSHUA HARRIS Quality: Adequate Procedures: Transthoracic echocardiogram with complete 2D, M-Mode, and doppler examination. Indications: Hypertension. 2D/M Mode Doppler Measurement Value Normal Ranges Measurement Value Normal Ranges LVIDd 2D 4.7 3.5 - 5.6 cm AV Peak Mina 1.8 m/sec LVIDs 2D 2.8 2.1 - 4.1 cm AV Peak PG 13.0 mmHg FS 2D 40.0 % LVOT Peak Mina 1.3 m/sec LVPWd 2D 0.9 0.6 - 1.1 cm LVOT Peak PG 7.0 mmHg IVSd 2D 0.9 0.6 - 1.1 cm MV E Peak Mina 0.8 m/sec IVS/LVPW 2D 1.0 MV A Peak Mina 0.8 m/sec AoR Diam 2D 2.4 2.0 - 3.7 cm MV E/A 0.9 LA/Ao 2D 2 0 - 1 MV Decel Time 180 msec EDV 2D 103.0 cm3 MV E/A 0.9 ESV 2D 22.2 cm3 MR Peak PG 74.0 mmHg LA Dimen 2D 3.8 2.3 - 4.0 cm MR Peak Mina 4.3 m/sec TR Peak Mina 2.9 m/sec TR Peak PG 33.0 mmHg RVSP 41.0 mmHg Findings Left Ventricle: Normal left ventricular systolic function. Normal left ventricular cavity size. Normal left ventricular wall thickness. Ejection fraction is visually estimated at 60 %. Tissue Doppler/Mitral Doppler indices are within normal limits. Right Ventricle: Normal right ventricular size. Normal right ventricular systolic function. Left Atrium: The left atrium is normal in size. Right Atrium: The right atrium is normal in size. Mitral Valve: Mild mitral leaflet calcification. Mild mitral annular calcification. Mild mitral valve regurgitation. Aortic Valve: Normal appearance of the aortic valve. No significant aortic stenosis or insufficiency. Tricuspid Valve: Normal appearance of the tricuspid valve. Estimated peak PA systolic pressure 41 mmHg. There is mild tricuspid regurgitation. Pulmonic Valve: Pulmonic valve not well visualized. There is trace pulmonic regurgitation. Pericardium: Normal pericardium with no significant pericardial effusion. Aorta: Normal aortic root. IVC: Dilated inferior vena cava with poor inspiratory collapse consistent with elevated right atrial pressures. Conclusions Normal left ventricular systolic function. Normal left ventricular cavity size. Normal left ventricular wall thickness. Ejection fraction is visually estimated at 60 %. Tissue Doppler/Mitral Doppler indices are within normal limits. Normal right ventricular size. Normal right ventricular systolic function. The left atrium is normal in size. The right atrium is normal in size. Mild mitral leaflet calcification. Mild mitral annular calcification. Mild mitral valve regurgitation. Normal appearance of the aortic valve. No significant aortic stenosis or insufficiency. Normal appearance of the tricuspid valve. Estimated peak PA systolic pressure 41 mmHg. There is mild tricuspid regurgitation. Electronically Signed By: Vanessa Felix 23-May-2017 19:34:48 -0700 Patient Name: RAJIV TERRELL Study Date: 22-May-2017 [id number]
[2017-05-23] MEDS: ACETAMINOPHEN 325 MG TAB PO PRN (20:13)
[2017-05-23 20:43] VITALS: BP 120/58; RESP 20
[2017-05-24 02:53] VITALS: BP 110/58; RESP 20
[2017-05-24 05:49] LABS: BASOPHIL # 0.1 10^3/ul (0.0-0.1); BASOPHILS % 0.6 % (0.0-2.0); CALCIUM 8.9 mg/dl (8.4-10.2); CREATININE 0.9 mg/dl (0.44-1.00); EOSINOPHILS # 0.3 10^3/ul (0.0-0.5); EOSINOPHILS % 3.4 % (0.0-7.0); HEMATOCRIT 37.3 % (37.0-47.0); HEMOGLOBIN 11.6 g/dl (12.0-16.0); LYMPHOCYTES # 2.6 10^3/ul (0.8-2.9); LYMPHOCYTES % 32.9 % (15.0-51.0); MEAN CORPUSCULAR HEMOGLOBIN 27.2 pg (29.0-33.0); MEAN CORPUSCULAR HGB CONC 31.1 g/dl (32.0-37.0); MEAN CORPUSCULAR VOLUME 87.4 fl (82.0-101.0); MEAN PLATELET VOLUME 10.4 fl (7.4-10.4); MONOCYTE # 0.6 10^3/ul (0.3-0.9); NEUTROPHILS % 54.9 % (39.0-77.0); PLATELET COUNT 292 10^3/UL (140-415); POTASSIUM 4.1 mmol/L (3.5-5.1); RED BLOOD COUNT 4.27 10^6/ul (4.20-5.40)
[2017-05-24 07:57] VITALS: BP 118/57; RESP 18
--- NOTE | 2017-05-24 08:08 | EN ---
Date/Time of Note Date/Time of Note DATE: 05/24/17 TIME: 07:51 Event Note Medicine Medicine Event Note Hematology consultation dictated-- . Pt is an obese, postmenopausal female admitted with pleuritic chest pain. Found to have evidence of pulmonary emboli involving the Rt lung and DVT of the Lt peroneal vein. Pt is now receiving apixaban 1o mg BID. This is the the 2nd "UNPROVKED" pulmonary embolism. Had previous event in 2008. Did receive one year anticoagulation with warfarin. No family hx of thromboembolic events. No hx of "connective tissue" disorders or spontaneous abortions. Will initiate evaluation for "THROMBOPHILIA" will include fibrinogen, Factors VII and IX levels, Antithrombin III, Protein C and S levels, Factor V Leiden mutation and Prothrombin gene mutation, STAR, Lupus anticoagulant screen, Antiphospholipid antibody panel, homocysteine level, Methelenetetrahydrofolate Reductase (MTHFR) DNA and Plasminogen Activator Inhibitor-1 mutation. Feel patient should be receiving apixaban, 5 mg BID for 6 mos. May then be switched to 2.5 mg BID for 6 mos. If pt found to have an underlying defect causing thrombophilia should be placed on lifelong anticoagulation with apixaban , 2.5 mg BID. If a genetic mutation is detected her children should be screened. HENRY BARRY MD May 24, 2017 08:07
--- NOTE | 2017-05-24 08:53 | CONS ---
DATE OF ADMISSION: 05/21/2017 DATE OF CONSULTATION: 05/24/2017 REQUESTING PHYSICIAN: Dr. Calixto. REASON FOR CONSULTATION: Pulmonary embolism and deep vein thrombosis. Dear Dr. Calixto and Ms. Patino: Thank you very much for asking me to see this very interesting, pleasant patient in hematologic consultation. HISTORY OF PRESENT ILLNESS: As you know, Ms. Pichardo is a 61- year-old postmenopausal female, who was admitted to [facility] on 03/20/2017. The patient at that time, was complaining of a sudden onset of left-sided chest pain. This was somewhat pleuritic in nature. It was made worse by deep of inspiration. The patient did have mild complaints of shortness of breath. There was a minimal cough. No hemoptysis. The patient did not experience any nausea, vomiting, or diaphoresis. The patient was admitted to [facility] after being seen in the emergency room. In the emergency room, the patient had a chest x-ray, which showed mild cardiomegaly and plate-like atelectasis in the left mid lung field. A CT angiogram of the chest Did also show evidence of right-sided middle lobe and right lower lobe pulmonary emboli. The heart was borderline enlarged. There were no pulmonary parenchymal lesions. No hilar or mediastinal adenopathy was seen. A venous ultrasound study of the lower extremities was performed. This did show a thrombus in the left peroneal vein. The remainder of the study was negative. The patient's, as mentioned, main complaint was pleuritic chest pain. She does state that she did have some pain in both popliteal fossae. She had, however, not noticed any swelling of the lower extremities. She had not noticed any erythema of the lower extremities. The patient denies any recent trauma. She had been on a prolonged automobile trip of 6 or 8 hours. This, however, was in March of this year PAST MEDICAL HISTORY: The patient's past history, however, is significant in that she does have a history of a pulmonary embolism in 2008. The patient, at that time, was anticoagulated initially with heparin and then with warfarin, which she took for 1 year. The patient states that prior to that episode she had not had again any trauma or any recent surgeries. There was no prolonged sedentary periods at that time, either. The patient states that until the onset of the pleuritic chest pain 4 or 5 days that she had been in good health. She had some mild shortness of breath and wheezing, but states that she has had a long history of underlying "asthma." Other medical problems include hypertension. The patient also states that she has had hyperlipidemia, has also had a uterine prolapse in the past. She denies taking any type of hormone replacement therapy. The patient also as mentioned does have "asthma." MEDICATION: At the time of admission include: 1. Hydrochlorothiazide 25 mg daily. 2. Potassium chloride 10 mEq daily. 3. Amlodipine 5 mg daily. 4. Valsartan 160 mg daily. 5. Gemfibrozil 600 mg daily. ALLERGIES: THE PATIENT STATES THAT SHE MAY BE ALLERGIC TO BENADRYL. SOCIAL HISTORY: The patient does not smoke or use alcoholic beverages. She has not knowingly been exposed to any industrial toxins or ionizing radiation. GYNECOLOGIC HISTORY: The patient's last menstrual period was at approximately 50 years of age. She has never taken any type of hormone replacement therapy. She is 3, para 3, AB 0. No history of deep vein thrombosis during or other complications. FAMILY HISTORY: Remarkable in that there is no known history of any thromboembolic phenomenon or events. Patient's mother at 70 of myocardial infarction. Father in his 80s with probable hypertension. Patient has 3 brothers and 2 sisters. No history of thromboembolic episodes and she has 2 daughters and 1 son who are in good health. There is no known family history of collagen vascular abnormalities. There is no history of multiple spontaneous miscarriages amongst female members of the family. PHYSICAL EXAMINATION: GENERAL APPEARANCE: At this time, reveals a well-developed, well- nourished, but obese female, who is in no acute distress. VITAL SIGNS: Temperature 97.7, pulse 62 per minute, respirations 20, blood pressure 110/58, and pulse oximetry is 96 percent on 2 L of nasal oxygen. SKIN: No ecchymosis, no petechiae or rashes. HEENT: Normocephalic. No evidence of trauma. Pupils equal, round, reactive to light and accommodation. Oral mucosa is moist without lesions. Tongue is well papillated. No gingival hyperplasia. No hypertrophy of Waldeyer's ring. No mucosal telangiectasias. NECK: Supple. No jugular distention, or thyroid enlargement. No carotid bruits. CHEST: Clear to auscultation and percussion. No rhonchi, wheezes, rales, or rubs. HEART: Regular sinus rhythm. No S3, S4, murmurs, no rubs. NODES: No palpable lymphadenopathy. BREASTS: No masses, skin retraction, nipple inversion. ABDOMEN: Obese, but there are no masses or ascites. Bowel sounds are active. EXTREMITIES: Good range of motion. No clubbing, edema, or cyanosis. No palpable cords or Homans sign. No marked tenderness in the popliteal fossa of the left lower extremity. NEUROLOGIC: Normal. LABORATORY: At this time, includes a white count of 8000, with an absolute neutrophil count of 4400, absolute lymphocyte count of 2600, hemoglobin 11.6, hematocrit 37.3, MCV 87.4, MCH 27.2, MCHC 31.1, RDW 14.0, and platelet count 292,000. A sodium is 139, potassium 4.1, creatinine 0.9, BUN 19. BNP 218. Troponin-1 has been less than 0.012 on 3 different occasions. All liver functions are normal. On admission, the patient's pro time was 12.9 seconds, INR of 0.97, PTT is 32.2 seconds. DISCUSSION: This patient has now had 2 thromboembolic episodes. The patient now has evidence of pulmonary embolism, as well as deep vein thrombosis involving the left lower extremity. In 2008, the patient also had a pulmonary embolism. Both of these episodes appear to be "unprovoked." The patient has had no trauma. No recent surgery. No longs sedentary periods. She is a nonsmoker. She is not taking any type of hormonal medication. As the patient has had an 2 "unprovoked" pulmonary emboli, I am concerned about the possibility of underlying "thrombophilia." There is no family history of recurrent thromboembolic episode but cannot rule out the possibility of an underlying coagulation problem. We will request multiple studies to rule out the possibility of "thrombophilia." This will include a fibrinogen, factor VIII level, factor XI level, antithrombin III, protein S and protein C, factor V Leiden mutation, prothrombin gene mutation, homocystine level, an STAR, lupus anticoagulant screen, antiphospholipid antibody panel, methylenetetrahydrofolate reductase, DNA analysis and a plasminogen activator inhibitor 1 analysis. The patient is presently on apixaban. She had initially been given enoxaparin. I agree with the use of apixaban. The patient is scheduled to receive 10 mg twice a day for 1 week. She will then be switched to 5 mg twice a day. Given the fact that this is a second unprovoked thromboembolic episode, I feel she should remain on 5 mg twice a day for a total of 6 months. Then, consider changing to a more chronic dose of 2.5 mg twice a day for another 6 months. If the patient is found to have some underlying cause for thrombophilia, then she may require lifelong anticoagulation with a low dose of apixaban at 2.5 mg twice a day. I have discussed the situation with the patient with the help of an park interpreter. I have explained that some of the conditions causing recurrent thromboembolic episodes are genetic. If the patient is found to have one of these, her children should be screened as well. Once again, thank you very much for the opportunity of participating in the medical care of this very interesting and pleasant patient. I will be happy to follow this patient with you and assist in her hematologic evaluation and followup as necessary. Dictated By: Steve Champion MD /carmelita/luana /Document#: [id number] CC: Roney Patino NP;*[facility]*
[2017-05-24] MEDS: POTASSIUM CHLORIDE (SR) 8 MEQ CAP PO SCH (09:21)
[2017-05-24] MEDS: RANITIDINE 150 MG TAB PO SCH (09:21)
[2017-05-24] MEDS: GEMFIBROZIL 600 MG TAB PO SCH (09:21)
[2017-05-24] MEDS: APIXABAN 5 MG TABLET PO SCH (09:21)
[2017-05-24] MEDS: AMLODIPINE 5 MG TAB PO SCH (09:24)
[2017-05-24] MEDS: HYDROCHLOROTHIAZIDE 25 MG TAB PO SCH (09:26)
[2017-05-24] MEDS: VALSARTAN 160 MG TAB PO SCH (09:27)
[2017-05-24] MEDS: ACETAMINOPHEN 325 MG TAB PO PRN (10:33)
--- NOTE | 2017-05-24 11:12 | CONS ---
Date/Time of Note Date/Time of Note DATE: 05/24/17 TIME: 11:10 Assessment/Plan Assessment/Plan Additional Assessment/Plan Assessment and recommendations; 1. Patient admitted with shortness of breath discovered to have right middle and lower lobe pulmonary embolism. Started on Eliquis. 2. Prior history of DVT and PE. Consider discharge. Patient will need lifelong anticoagulation. Consultation Date/Type/Reason Admit Date/Time May 21, 2017 at 09:26 Initial Consult Date 05/22/17 Type of Consultation: Pulmonary 24 HR Interval Summary Free Text/Dictation Patient condition stable. Remains awake and alert. Denies any chest pain, shortness of breath, coughing, hemoptysis. Any sputum production. General exam; elderly woman, awake and alert. Currently in no distress. Exam/Review of Systems Vital Signs Vitals Vital Signs Date Time Temp Pulse Resp B/P Pulse Ox O2 Delivery O2 Flow Rate FiO2 05/24/17 07:57 98.3 67 18 118/57 96 05/21/17 12:41 Room Air 05/21/17 11:30 2.0 Intake and Output 05/23/17 05/23/17 05/24/17 15:00 23:00 07:00 Intake Total 1140 ml 850 ml Output Total 800 ml Balance 1140 ml 50 ml Exam HEENT; supple neck, no JVD. No lymphadenopathy. Midline trachea. No thyromegaly. Pupils are small bilaterally. Patient has fair dentition. Chest exam; clear to auscultation. S1-S2 audible, no murmurs. Regular rhythm. Abdomen exam; soft, no organomegaly. Nontender. Bowel sounds audible. Extremity exam; no peripheral edema. TR[employer]ITION[employer]IVING [employer]IST exam; no focal deficit. Results Result Diagram: 05/24/17 0433 05/24/17 0433 Results 24 hrs Laboratory Tests Test 05/24/17 04:33 05/24/17 09:19 White Blood Count 8.0 Red Blood Count 4.27 Hemoglobin 11.6 L Hematocrit 37.3 Mean Corpuscular Volume 87.4 Mean Corpuscular Hemoglobin 27.2 L Mean Corpuscular Hemoglobin Concent 31.1 L Red Cell Distribution Width 14.0 Platelet Count 292 Mean Platelet Volume 10.4 Neutrophils % 54.9 Lymphocytes % 32.9 Monocytes % 8.0 Eosinophils % 3.4 Basophils % 0.6 Nucleated Red Blood Cells % 0.0 Neutrophils # (Manual) 4.4 Lymphocytes # 2.6 Monocytes # 0.6 Eosinophils # 0.3 Basophils # 0.1 Nucleated Red Blood Cells # 0.0 Sodium Level 139 Potassium Level 4.1 Chloride Level 108 Carbon Dioxide Level 25 Anion Gap 10 Blood Urea Nitrogen 19 Creatinine 0.90 Glucose Level 97 Calcium Level 8.9 Fibrinogen 507.0 H Medications Medications Current Medications Amlodipine Besylate (Norvasc) 5 mg DAILY PO Last administered on 05/24/17 09: 24; Admin Dose 5 MG; Start 05/22/17 at 09:00 Gemfibrozil (Lopid) 600 mg DAILY PO Last administered on 05/24/17 09:21; Admin Dose 600 MG; Start 05/22/17 at 09:00 Valsartan (Diovan) 160 mg DAILY PO Last administered on 05/24/17 09:27; Admin Dose 160 MG; Start 05/22/17 at 09:00 Hydrochlorothiazide (Hydrochlorothiazide) 25 mg DAILY PO Last administered on 09:26; Admin Dose 25 MG; Start 05/22/17 at 09:00 Apixaban (Eliquis) 10 mg BID PO Last administered on 05/24/17 09:21; Admin Dose 10 MG; Start 05/21/17 at 21:00; Stop 05/28/17 at 20:59 Apixaban (Eliquis) 5 mg BID PO ; Start 05/28/17 at 21:00 Acetaminophen (Tylenol Tab) 650 mg Q6H PRN PO PAIN AND OR ELEVATED TEMP Last administered on 05/24/17 10:33; Admin Dose 650 MG; Start 05/21/17 at 19:00 Ranitidine HCl (Zantac) 150 mg BID PO Last administered on 05/24/17 09:21; Admin Dose 150 MG; Start 05/22/17 at 21:00 Potassium Chloride (Micro-K) 8 meq DAILY PO Last administered on 05/24/17 09: 21; Admin Dose 8 MEQ; Start 05/23/17 at 11:00 TIFFANY ZEPEDA May 24, 2017 11:12
[2017-05-24 14:41] VITALS: BP 130/62; RESP 20
--- NOTE | 2017-05-24 18:26 | PDOCDIS ---
Discharge Instructions CONDITION Patient Condition: Stable HOME CARE INSTRUCTIONS: Diet Instructions: RegularYour diet recommendation is: N/A ACTIVITY: Activity Restrictions: Slowly Increase Activity Rest between Activity Avoid heavy lifting Do not operate Machinery Do not operate Power Tool Avoid Heavy Housework Bathing Restrictions: Shower FOLLOW UP/APPOINTMENTS Follow-up Plan FU with primary MD x 1 week Fu with Oncology/Cardiology as recommended. Call 911 or go to the the nearest hospital is symptoms got worse.Patient verbalized understanding dc instructions. Mat Calixto/staff JOSHUA HARRIS May 24, 2017 18:26
[2017-05-24] MEDS ORDERED: APIX5TAB PO (18:28)
[2017-05-24] MEDS ORDERED: RANI150T5 PO (18:29)
--- NOTE | 2017-05-24 18:32 | DS ---
Date/Time of Note Date/Time of Note DATE: 05/24/17 TIME: 18:32 Discharge Summary Admission/Discharge Info Admit Date/Time May 21, 2017 at 09:26 Discharge Date/Time Hx of Present Illness HPI 61-year-old female with a history of hypertension, hyperlipidemia, asthma, uterine prolapse and a pulmonary embolism in 2008 treated with Coumadin for 1 year ambulatory to the emergency department with her daughter complaining of acute onset of sharp, left sided chest pain which radiates to her back accompanied by mild shortness of breath and nausea but vomiting or diaphoresis. Pain is pleuritic and exacerbated by breathing. No relieving factors. Denies cough or wheezing. No leg pain or swelling. No skin rash. Several month history of mild, intermittent, generalized, nonradiating, crampy abdominal pain but not currently. No hematemesis, hematochezia or melanotic stools. No dysuria, polyuria, hematuria or flank pain. No URI symptoms or cough. No fevers or chills. Patient does have a long history of intermittent episodes of chest pain and had a negative nuclear medicine study in 2011. ROS All systems reviewed and are negative except as per history of present illness. Hospital Course Patient is 61 year old F with no signficant PMH came in with bilateral leg pain more in right with Actue DVT and PE in bilateral lobe. No CP, NO SOB at this time. tele no arrhythmia. Home Meds Active Scripts Ranitidine Hcl* (Ranitidine Hcl*) 150 Mg Tablet, 150 MG PO BID, #60 TAB Prov:JOSHUA HARRIS 05/24/17 Apixaban* (Eliquis*) 5 Mg Tablet, 10 MG PO BID for 3 Days, TAB Prov:JOSHUA HARRIS 05/24/17 Apixaban* (Eliquis*) 5 Mg Tablet, 5 MG PO BID for 7 Days, TAB Prov:JOSHUA HARRIS 05/24/17 Reported Medications Potassium Chloride (Klor-Con) 10 Meq Tablet.sa, 8 MEQ PO DAILY 12/25/11 [Hydrochlorotiazide] No Conflict Check, 25 MG PO DAILY 12/25/11 Amlodipine Besylate* (Amlodipine Besylate*) 5 Mg Tablet, 5 MG PO DAILY 12/25/11 Gemfibrozil* (Gemfibrozil*) 600 Mg Tablet, 600 MG PO DAILY 12/25/11 Valsartan* (Diovan*) 160 Mg Tablet, 160 MG PO DAILY 12/25/11 Follow-up Plan FU with primary MD x 1 week Fu with Oncology/Cardiology as recommended. Call 911 or go to the the nearest hospital is symptoms got worse.Patient verbalized understanding dc instructions. Dw Dr Calixto/staff Primary Care Provider Alex Hendricks MD Pending Labs Laboratory Tests Test 05/24/17 04:33 05/24/17 09:19 White Blood Count 8.010^3/ul (4.8-10.8) Red Blood Count 4.2710^6/ul (4.20-5.40) Hemoglobin 11.6g/dl (12.0-16.0) Hematocrit 37.3% (37.0-47.0) Mean Corpuscular Volume 87.4fl (82.0-101.0) Mean Corpuscular Hemoglobin 27.2pg (29.0-33.0) Mean Corpuscular Hemoglobin Concent 31.1g/dl (32.0-37.0) Red Cell Distribution Width 14.0% (11.5-14.5) Platelet Count 43794^3/UL (140-415) Mean Platelet Volume 10.4fl (7.4-10.4) Neutrophils % 54.9% (39.0-77.0) Lymphocytes % 32.9% (15.0-51.0) Monocytes % 8.0% (0.0-11.0) Eosinophils % 3.4% (0.0-7.0) Basophils % 0.6% (0.0-2.0) Nucleated Red Blood Cells % 0.0/100WBC (0.0-0.0) Neutrophils # (Manual) 4.410^3/ul (1.7-7.5) Lymphocytes # 2.610^3/ul (0.8-2.9) Monocytes # 0.610^3/ul (0.3-0.9) Eosinophils # 0.310^3/ul (0.0-0.5) Basophils # 0.110^3/ul (0.0-0.1) Nucleated Red Blood Cells # 0.010^3/ul (0.0-0.0) Sodium Level 139mmol/L (135-144) Potassium Level 4.1mmol/L (3.5-5.1) Chloride Level 108mmol/L (97-110) Carbon Dioxide Level 25mmol/L (21-31) Anion Gap 10 (8-16) Blood Urea Nitrogen 19mg/dl (7-20) Creatinine 0.90mg/dl (0.44-1.00) Glucose Level 97mg/dl (70-220) Calcium Level 8.9mg/dl (8.4-10.2) Fibrinogen 507.0mg/dl (207-461) JOSHUA HARRIS May 24, 2017 18:32
[2017-05-25 12:47] LABS: ANA SCREEN NEGATIVE (NEGATIVE)
[2017-05-28] MEDS ORDERED: APIXABAN 5 MG TABLET PO SCH (21:00)
== END 2017-05-24 19:29 | disposition home or self-care (01) | DRG 176 ==
LOC: E/R 05:07 → MS3 09:26 → MS1 12:24
PROVIDERS: ADMIT Internal Medicine; ATTEND Internal Medicine
DX: I26.99 Other pulmonary embolism without acute cor pulmonale (principal); I10 Essential (primary) hypertension; I82.4Z2 Acute embolism and thrombosis of unspecified deep veins of left distal lower extremity; J45.909 Unspecified asthma, uncomplicated; Z86.711 Personal history of pulmonary embolism; Z82.49 Family history of ischemic heart disease and other diseases of the circulatory system; J02.9 Acute pharyngitis, unspecified; E66.9 Obesity, unspecified; Z68.37 Body mass index [BMI] 37.0-37.9, adult; Z78.0 Asymptomatic menopausal state
CPT/HCPCS: 36415; 71010; 71275; 80048; 80053; 81240; 82550; 82553; 83090; 83880; 83890; 84484; 85025; 85240; 85250; 85300; 85302; 85305; 85384; 85610; 85613; 85730; 86038; 93005; 93306; 93970; 96372; J1650; Q9967

== ENCOUNTER 2017-12-19 09:05 | Emergency (ER) | END 2017-12-19 13:53 | disposition home or self-care (01) ==